=== PATIENT | female | born 1970 | race Caucasian/White ===

== ENCOUNTER 2018-01-08 16:24 | Emergency (ER) | payer BC ==
[~2018-01-08] VITALS: Ht 175.3 cm; Wt 64.9 kg
[2018-01-08] MEDS ORDERED: Albuterol ud Inhalation HHN ONE (17:30)
--- NOTE | 2018-01-08 18:19 | Emergency Room Report ---
History of Present Illness General Chief Complaint: Upper Respiratory Illness Source: Patient Present Illness HPI 47-year-old female presents to the emergency department complaining of persistent cough with nasal congestion and 5/10 in severity intermittent progressive headaches x1.5 weeks. Patient states she finished a Z-Rich which did not improve her symptoms. Patient reports initially having low-grade fevers the first few days however she denies fevers and chills now. Denies history of asthma, COPD or smoking . Denies sore throat, ear pain, high fevers, lethargy, neck pain/stiffness, irritability, photophobia dehydration, N/V/D. Denies Cp, Palpitations, LOC, AMS, seizures, paresthesias, or changes in Hearing or vision, no Sudden severe CONSTANTINO. Allergies: Coded Allergies: PENICILLINS (Verified Allergy, Unknown, 01/08/18) Patient History Past Medical History: see triage record Past Surgical History: none Pertinent Family History: none Last Menstrual Period: 12/18/17 Now: No : 1 Para: 0 Reviewed Nursing Documentation: PMH: Agreed, PSxH: Agreed Nursing Documentation-PMH Past Medical History: No History, Except For Hx Cardiac Problems: Yes - Arythmias Review of Systems All Other Systems: negative except mentioned in HPI Physical Exam Vital Signs Date Time Temp Pulse Resp B/P (MAP) Pulse Ox O2 Delivery O2 Flow Rate FiO2 01/08/18 16:40 98.2 71 16 113/76 96 Room Air 98.2 01/08/18 18:01 21 Sp02 EP Interpretation: reviewed, normal General Appearance: no apparent distress, alert, GCS 15, non-toxic Head: normocephalic, atraumatic ENT: hearing grossly normal, normal voice, TMs + canals normal, uvula midline, moist mucus membranes, nasal congestion - clear rhinorrhea, pharyngeal erythema , other - no tonsillar exudates or swelling. Neck: full range of motion Respiratory: chest non-tender, no rhonchi, no respiratory distress, no accessory muscle use, speaking full sentences, wheezing Cardiovascular #1: regular rate, rhythm Musculoskeletal: back normal, gait/station normal, normal range of motion, non- tender Neurologic: alert, oriented x3, responsive, motor strength/tone normal, sensory intact, speech normal, grossly normal Psychiatric: judgement/insight normal Skin: normal color, no rash, warm/dry, well hydrated Lymphatic: no adenopathy Medical Decision Making PA Attestation Dr. Rodas is my supervising Physician whom patient management has been discussed with. Diagnostic Impression: Primary Impression: Bronchitis ER Course 47-year-old female presents to the emergency department complaining of persistent cough with nasal congestion and 5/10 in severity intermittent progressive headaches x1.5 weeks. Patient states she finished a Z-Rich which did not improve her symptoms. Patient reports initially having low-grade fevers the first few days however she denies fevers and chills now. Denies history of asthma, COPD or smoking . Denies sore throat, ear pain, high fevers, lethargy, neck pain/stiffness, irritability, photophobia dehydration, N/V/D. Denies Cp, Palpitations, LOC, AMS, seizures, paresthesias, or changes in Hearing or vision, no Sudden severe CONSTANTINO. Ddx considered but are not limited to URI, pneumonia, PE, strep pharyngitis, meningitis. Vital signs: Pt.is afebrile VS are WNL H&PE are most consistent with bronchitis- URI no evidence of bacterial infection at this time. ORDERS: none required at this time, the diagnosis is clinical ED INTERVENTIONS: -Albuterol Nebulized Treatment --re-evaluation : pt. lungs are now CTA bilaterally. DISCHARGE: At this time pt. is stable for d/c to home. Will provide printed patient care instructions, and any necessary prescriptions. Care plan and follow up instructions have been discussed with the patient prior to discharge. Last Vital Signs Date Time Temp Pulse Resp B/P (MAP) Pulse Ox O2 Delivery O2 Flow Rate FiO2 01/08/18 18:05 70 16 Room Air 21 01/08/18 18:01 93 01/08/18 16:40 98.2 113/76 98.2 Disposition: HOME, SELF-CARE Condition: Stable Scripts Naproxen* (NAPROXEN*) 500 Mg Tablet 500 MG ORAL TWICE A DAY, #20 TAB Prov: Nelida Arroyo P.A. 01/08/18 Guaifenesin (Guaifenesin) 1,200 Mg Tab.er.12h 1200 MG PO BID, #20 TAB Prov: Nelida Arroyo P.A. 01/08/18 Albuterol Sulfate* (ALBUTEROL SULFATE MDI*) 8.5 Gm Hfa.aer.ad 2 PUFF INH Q3H, #1 INH 0 Refills Prov: Nelida Arroyo 01/08/18 Codeine/Promethazine Hcl* (PROMETHAZINE-CODEINE SYRUP*) 118 Ml Syrup 5 ML ORAL Q6H Y for For Cough, #240 ML 0 Refills Prov: Nelida Arroyo 01/08/18 Patient Instructions: Acute Bronchitis, [id number], Upper Respiratory Infection, Adult, [id number] Additional Instructions: Take medications as directed. Follow up with a Primary Care Provider in 3-5 days, even if your symptoms have resolved. --Please review list of primary care clinics, if you do not already have a primary care provider Return sooner to ED if new symptoms occur, or current symptoms become worse. Do not drink alcohol, drive, or operate heavy machinery while taking Cough Syrup as this may cause drowsiness. - Please note that this Emergency Department Report was dictated using [employer] lab[employer]designer technology software, occasionally this can lead to erroneous entry secondary to interpretation by the dictation equipment. Nelida Arroyo Jan 08, 2018 18:19
[2018-01-08] MEDS ORDERED: ALBUTEROL SULF8.5 GM INH (18:34)
[2018-01-08] MEDS ORDERED: PROMETHAZINE-C118 M1 ORAL (18:34)
[2018-01-08] MEDS ORDERED: NAPROXEN500 M2 ORAL (18:34)
[2018-01-08] MEDS ORDERED: GUAIFENESIN1200 MG PO (18:34)
[2018-01-08 18:36] VITALS: BP 110/74
[2018-01-08 18:41] VITALS: BP 110/74
== END 2018-01-08 19:00 | disposition home or self-care (01) ==
LOC: EMR 19:00
DX: J40 Bronchitis, not specified as acute or chronic (principal)
CPT/HCPCS: 94640; 94664; 99284

== ENCOUNTER 2018-05-14 10:47 | Emergency (ER) | payer BC ==
[~2018-05-14] VITALS: Ht 175.3 cm; Wt 64.0 kg
[~2018-05-14 10:47] MED LIST: ALBUTEROL SULF8.5 GM INH; GUAIFENESIN1200 MG PO; NAPROXEN500 M2 ORAL; PROMETHAZINE-C118 M1 ORAL
[2018-05-14] MEDS ORDERED: SERTRALINE HCL50 MG ORAL (11:04)
[2018-05-14] MEDS ORDERED: SPIRONOLACTONE50 MG ORAL (11:04)
[2018-05-14 11:14] VITALS: BP 108/65
[2018-05-14] MEDS ORDERED: Albuterol ud Inhalation HHN ONE (11:45)
[2018-05-14] MEDS ORDERED: Ipratropium 0.02% Inh Soln 2.5ml UD HHN ONE (11:45)
[2018-05-14] MEDS ORDERED: Promethazine/DM 6.25mg/5ml ORAL ONE (12:30)
[2018-05-14 12:45] LABS: EOSINOPHILS % (AUTO) 2.1 % (0.0-3.0); HEMATOCRIT 38.4 % (37.0-47.0); HEMOGLOBIN 13.3 G/DL (12.0-16.0); LYMPHOCYTES % (AUTO) 30.2 % (20.0-45.0); MEAN CORPUSCULAR VOLUME 90 FL (80-99); MONOCYTES % (AUTO) 11.9 % (1.0-10.0); NEUTROPHILS % (AUTO) 54.8 % (45.0-75.0); PLATELET COUNT 170 K/UL (150-450); RED BLOOD COUNT 4.25 M/UL (4.20-5.40); RED CELL DISTRIBUTION WIDTH 11.3 % (11.6-14.8); WHITE BLOOD COUNT 6.3 K/UL (4.8-10.8)
[2018-05-14] MEDS ORDERED: PROMETHAZINE-C118 M1 ORAL (12:59)
[2018-05-14] MEDS ORDERED: ALBUTEROL SULF8.5 GM INH (12:59)
[2018-05-14] MEDS ORDERED: PREDNISONE20 MG ORAL (12:59)
[2018-05-14] MEDS ORDERED: GUAIFENESIN1200 MG PO (12:59)
[2018-05-14 13:19] VITALS: BP 108/65
--- NOTE | 2018-05-14 13:55 | Emergency Room Report ---
History of Present Illness General Chief Complaint: Upper Respiratory Illness Source: Patient Present Illness HPI 47-year-old female presents ED complaining of cough and congestion 4 days. States she feels chest tightness. Cough is dry. Notes runny nose and congestion. Denies earache or sore throat. Afebrile. Denies smoking. Denies sick contacts or recent travel. No other aggravating relieving factors. Denies any other associated symptoms Allergies: Coded Allergies: GLUTEN (Verified Allergy, Unknown, 05/14/18) PENICILLINS (Verified Allergy, Unknown, 01/08/18) Patient History Past Medical History: other - celiac disease Past Surgical History: none Pertinent Family History: none Social History: Denies: smoking, alcohol use, drug use Last Menstrual Period: 02/27/2018 Now: No Immunizations: UTD Reviewed Nursing Documentation: PMH: Agreed; PSxH: Agreed Nursing Documentation-PMH Past Medical History: No History, Except For Hx Cardiac Problems: Yes - Arrthymia Hx Hypertension: No - mitral valve prolapse Hx Pacemaker: No Hx Asthma: No Hx COPD: No Hx Diabetes: No Hx Cancer: No Hx Gastrointestinal Problems: Yes - Celiac disease Hx Dialysis: No History Of Psychiatric Problem: No - insonmia Hx Neurological Problems: No Hx Cerebrovascular Accident: No Hx Seizures: No Review of Systems All Other Systems: negative except mentioned in HPI Physical Exam Vital Signs Date Time Temp Pulse Resp B/P (MAP) Pulse Ox O2 Delivery O2 Flow Rate FiO2 05/14/18 10:58 98.2 67 16 108/65 94 Room Air 98.2 05/14/18 11:45 21 Sp02 EP Interpretation: reviewed, normal General Appearance: no apparent distress, alert, GCS 15, non-toxic Head: normocephalic, atraumatic Eyes: bilateral eye normal inspection, bilateral eye PERRL ENT: hearing grossly normal, normal pharynx, no angioedema, normal voice Neck: full range of motion, supple/symm/no masses Respiratory: chest non-tender, speaking full sentences, wheezing Cardiovascular #1: regular rate, rhythm, no edema Cardiovascular #2: 2+ carotid (R), 2+ carotid (L), 2+ radial (R), 2+ radial (L) , 2+ dorsalis pedis (R), 2+ dorsalis pedis (L) Gastrointestinal: normal bowel sounds, non tender, soft, non-distended, no guarding, no rebound Rectal: deferred Genitourinary: normal inspection, no CVA tenderness Musculoskeletal: back normal, gait/station normal, normal range of motion, non- tender Neurologic: alert, oriented x3, responsive, motor strength/tone normal, sensory intact, speech normal Psychiatric: judgement/insight normal, memory normal, mood/affect normal, no suicidal/homicidal ideation Reflexes: 3+ bicep (R), 3+ bicep (L), 3+ tricep (R), 3+ tricep (L), 3+ knee (R) , 3+ knee (L) Skin: normal color, no rash, warm/dry, well hydrated Lymphatic: no adenopathy Medical Decision Making Diagnostic Impression: Primary Impression: Bronchitis ER Course Hospital Course 47-year-old female presents to ED complaining of cough, congestion Differential diagnoses include: URI, bronchitis, asthma/COPD, pneumonia Clinical course Patient placed on stretcher. After initial history and physical I ordered prednisone, promethazine and nebulizer treatment. Upon reassessment patient states cough and symptoms have improved. Findings consistent with bronchitis. Patient did request CBC. History of anemia in the past. CBC unremarkable. We' ll give results to patient Diagnosis - bronchitis Stable and discharged home with prescriptions for Rx albuterol, promethazine, mucinex prednisone. Instructed to followup with PMD. Return to ED if symptoms recur or worsen Labs Test 05/14/18 12:10 White Blood Count 6.3 K/UL (4.8-10.8) Red Blood Count 4.25 M/UL (4.20-5.40) Hemoglobin 13.3 G/DL (12.0-16.0) Hematocrit 38.4 % (37.0-47.0) Mean Corpuscular Volume 90 FL (80-99) Mean Corpuscular Hemoglobin 31.2 PG (27.0-31.0) Mean Corpuscular Hemoglobin Concent 34.5 G/DL (32.0-36.0) Red Cell Distribution Width 11.3 % (11.6-14.8) Platelet Count 170 K/UL (150-450) Mean Platelet Volume 6.8 FL (6.5-10.1) Neutrophils (%) (Auto) 54.8 % (45.0-75.0) Lymphocytes (%) (Auto) 30.2 % (20.0-45.0) Monocytes (%) (Auto) 11.9 % (1.0-10.0) Eosinophils (%) (Auto) 2.1 % (0.0-3.0) Basophils (%) (Auto) 1.0 % (0.0-2.0) Last Vital Signs Date Time Temp Pulse Resp B/P (MAP) Pulse Ox O2 Delivery O2 Flow Rate FiO2 05/14/18 13:19 98.2 67 18 108/65 99 Room Air 21 98.2 Status: improved Disposition: HOME, SELF-CARE Condition: Stable Scripts Prednisone* (PREDNISONE*) 20 Mg Tablet 40 MG ORAL DAILY, #10 TAB Prov: Primo Trent MD 05/14/18 Albuterol Sulfate* (ALBUTEROL SULFATE MDI*) 8.5 Gm Hfa.aer.ad 2 PUFF INH Q6H, #1 EA 0 Refills Prov: Primo Trent MD 05/14/18 Guaifenesin (Guaifenesin) 1,200 Mg Tab.er.12h 1200 MG PO BID, #20 TAB Prov: Primo Trent MD 05/14/18 Codeine/Promethazine Hcl* (PROMETHAZINE-CODEINE SYRUP*) 118 Ml Syrup 5 ML ORAL Q6H PRN for For Cough, #240 ML 0 Refills Prov: Primo Trent MD 05/14/18 Patient Instructions: Acute Bronchitis, [id number] Primo Trent MD May 14, 2018 13:55
== END 2018-05-14 13:19 | disposition home or self-care (01) ==
LOC: EMR 11:31
DX: J40 Bronchitis, not specified as acute or chronic (principal); Z88.0 Allergy status to penicillin
CPT/HCPCS: 36415; 85025; 94640; 99284; J7512